=== PATIENT | female | born 1995 | race Caucasian/White ===

== ENCOUNTER 2020-02-02 02:00 | Inpatient (IN) | payer MEDICAID ==
[~2020-02-02] VITALS: Ht 154.9 cm; Wt 78.6 kg
[2020-02-02] VITALS (38 sets, daily range): BP systolic 88–144; BP diastolic 50–89; PULSE 75–120; TEMP 98.2–99.2
[2020-02-02] MEDS ORDERED: PRENATAL MVI (02:18)
[2020-02-02 04:01] LABS: BASO % 0.2 % (0.0-2.0); EOS # 0.2 (0.0-0.7); EOS % 1.7 % (0-4.0); GRAN # 8.7 (1.4-6.5); GRAN % 64.4 % (42.2-75.2); HEMATOCRIT 39.6 % (37.0-47.0); HEMOGLOBIN 13.2 g/dl (12.5-16.0); LYMPH # 3.4 (1.2-3.4); LYMPH % 25.2 % (20.0-51.0); MEAN CELL VOLUME 95 fl (80.0-100.0); MEAN CORPUSCULAR HEMOGLOBIN 32 pg (27.0-31.0); MEAN CORPUSCULAR HGB CONC 33 g/dl (33.0-37.0); MEAN PLATELET VOLUME 9.8 fl (7.4-10.4); MONO # 1.1 (0.1-0.6); MONO % 8.1 % (1.7-9.3); PLATELET COUNT 272 K/mm3 (130-400); RED BLOOD COUNT 4.17 M/mm3 (4.10-5.30); REDCELL DISTRIBUTION WIDTH-CV 12.8 % (11.5-14.5)
--- NOTE | 2020-02-02 05:00 | NUR ---
0200- Patient ambulatory to LR5 with boyfriend. Patient and FOB oriented to labor room. Patient into restroom to change into clean gown. 0212- EFM and TOCO on and tracing. Patient has complaints of contractions since 2099 occuring every 5-15 minutes and increasing intensity. Patient reports minimal brown spotting when wiping. Patient denies LOF or bleeding. Patient reports good movement. 0215- SVE /-2. See Physician Notification. 0230- Admission assessment completed. Consents signed. Patient is requesting to use the whirlpool. Plan of care discussed with patient and FOB. 0330- IV started. Labs drawn and sent. INT at this time. 0355- SVE /-2. EFM and TOCO removed. Patient into whirlpool. 0400- Whirlpool Temperature 99.4. 0430- Whirlpool Temperature 100.2. Cold water and ice added to lower temperature to WNL. 0455- Whirlpool Temperature 99.0. Patient out of whirlpool and back to bed. SVE /-2 and unchanged from previous cervical exam. 0500- LR infusing per protocol. Patient resting in bed. 0531- RN at bedside. Audible FHR 130's. EFM tracing maternal HR. EFM adjusted. Patient in LL position.
--- NOTE | 2020-02-02 07:07 | NUR ---
Reactive FHR strip. Pt requesting intermittent montioring. Pt taken off monitors and resting in bed. Options for birthing ball. Pt declines at this time. IV to INT.
--- NOTE | 2020-02-02 08:25 | NUR ---
Pt back to monitors and resting in bed.
--- NOTE | 2020-02-02 10:03 | NUR ---
Pt up to whirlpool. Temp recorded at 98.1 degrees F. 1035-FHR assessed at 125 via doppler. Ctx q 4-5 minutes lasting approximately 60 seconds. Whirlpool temp noted at 98.8 degrees F. BP 106/72. HR 99 BPM.
--- NOTE | 2020-02-02 12:55 | NUR ---
Dr. Sood at bedside. Discusses AROM and epidural with pt. Pt request AROM after epidural. 1341-Pt back to monitors. 1400, 1406, RN at bedside. Pt sitting upright. Maternal HR tracing.
--- NOTE | 2020-02-02 18:23 | NUR ---
Pt sitting LL for epidural placement. Difficulty tracing FHR due to maternal position. RN at bedside adjusting monitors. FHR audible.
--- NOTE | 2020-02-02 21:04 | NUR ---
2026- PT BEGINS PUSHING WITH THIS NURSE. 2035- DR. DIAZ NOTIFIED OF IMPENDING DELIVERY, WILL COME TO UNIT FOR DELIVERY. 2043- KAELA PATE'D, 300MLS CLEAR YELLOW URINE OUT. 2048- DR. DIAZ IN ROOM FOR DELIVERY. 2056- SPONTANEOUS VAGINAL DELIVERY OF VIABLE BABY BOY. BABY TO MOTHER'S ABDOMEN, DELAYED CORD CLAMPING REQUESTED BY PT. BABY CARES ASSUMED BY Freddy ZHAO RN. 2040- SPONTANEOUS DELIVERY OF INTACT PLACENTA, MECONIUM STAINED. PITOCIN STARTED PER PROTOCOL. DR. DIAZ COMPLETES REPAIR OF 2ND DEGREE LACERATION.
--- NOTE | 2020-02-02 23:00 | NUR ---
PT UP TO BATHROOM, VOIDED 200MLS. PERICARE PROVIDED, MESH UNDERWEAR WITH ICE PACK APPLIED. PT AMBULATED TO WITHOUT DIFFICULTY.
[2020-02-03 01:00] VITALS: BP 106/47; PULSE 75; TEMP 98.4
[2020-02-03 05:00] VITALS: BP 99/58; PULSE 95; TEMP 98.2
[2020-02-03 07:00] VITALS: BP 102/68; PULSE 78; TEMP 98.1
--- NOTE | 2020-02-03 10:09 | NUR ---
SW responded to the OB for a social worker delinquency prevention consult for the patient due to mother has concerns with bonding after delivery, sees therapist frequently, new relationship with FOB when found out , and high anxiety. The patient's nurse reports no concerns. SW met with the patient. The patient was in bed holding baby comfortably. The patient stated she was concerned during about bonding with baby. She does not feel that way now. The patient has talk therapy with Chante Zamora LCPC at [facility] once a week and went to appointments all through her . Her next appointment is on Friday, 02/03. The patient states she discussed post depression with Chante during her and knows the signs. The patient knows she can contact Chante if she has a questions or needs further assistance. The patient inquired about a breast pump. The nurse to meet with the patient this day. Janusz with finance to meet with patient. GLADIS collaborated the above information with the patient's nurse.
[2020-02-03] MEDS ORDERED: PERCOCET 325 MG1 TA2 PO (13:54)
[2020-02-03] MEDS ORDERED: IBU600 MG PO (13:54)
[2020-02-03 16:12] VITALS: BP 100/60; PULSE 78; TEMP 98
[2020-02-03 16:17] VITALS: BP 98/54; PULSE 64; TEMP 98.1
[2020-02-03 21:00] VITALS: BP 102/66; PULSE 94; TEMP 98.4
[2020-02-04 07:44] VITALS: BP 112/66; PULSE 78; TEMP 97.4
== END 2020-02-04 15:00 | disposition home or self-care (01) | DRG 807 ==
LOC: LDR → OB 02:00 → LDR 02:00 → OB 23:20
PROVIDERS: Student in an Organized Health Care Education/Training Program; ADMIT Obstetrics & Gynecology
PROC: 10E0XZZ Delivery of Products of Conception, External Approach (ICD-10-PCS; principal; 2020-02-02)
PROC: 0KQM0ZZ Repair Perineum Muscle, Open Approach (ICD-10-PCS; 2020-02-02)
DX: O99.344 Other mental disorders complicating childbirth (principal); Z37.0 Single live birth; O77.0 Labor and delivery complicated by meconium in amniotic fluid; F32.9 Major depressive disorder, single episode, unspecified; O99.62 Diseases of the digestive system complicating childbirth; K21.9 Gastro-esophageal reflux disease without esophagitis; O69.81X0 Labor and delivery complicated by cord around neck, without compression, not applicable or unspecified; O70.1 Second degree perineal laceration during delivery; Z3A.41 41 weeks gestation of pregnancy
CPT/HCPCS: J2590; J2795; J7120